=== PATIENT | male | born 1965 | race Caucasian/White ===

== ENCOUNTER → 2019-03-04 | Outpatient (CLI) | payer BC | END | disposition home or self-care (01) | LOC: RAD 19:21 | DX: M16.0 Bilateral primary osteoarthritis of hip (principal) ==

== ENCOUNTER → 2025-09-24 | Outpatient (CLI) | payer BC | END | disposition home or self-care (01) | LOC: US 01:23 | PROVIDERS: ATTEND Family Medicine | DX: Z01.810 Encounter for preprocedural cardiovascular examination (principal); I71.40 Abdominal aortic aneurysm, without rupture, unspecified ==